=== PATIENT | male | born 1945 | race Caucasian/White ===

== ENCOUNTER → 2021-09-06 17:44 | Outpatient (CLI) | payer MEDICARE, OTHER, SELFPAY ==
--- NOTE | 2021-09-06 17:50 | DI.RAD.S_ITS ---
PROCEDURE: XR KNEE LT 3V INDICATIONS: LEFT KNEE PAIN TECHNIQUE: 3 views of the knee were acquired. COMPARISON: None. FINDINGS: Bones: No fractures or dislocations. No suspicious bony lesions. Moderate medial and patellofemoral compartment osteoarthritis. Mild lateral compartment osteoarthritis. Soft tissues: No joint effusion. No suspicious soft tissue calcifications. IMPRESSION: Left knee tricompartmental osteoarthritis. Dictated by: Viviana Gusman MD, PhD on 09/07/2021 at 10:26 Approved by: Viviana Gusman MD, PhD on 09/07/2021 at 10:26
== END ==
PROVIDERS: PCP Physician Assistant; Referring Provider Physician Assistant; Visit Provider Physician Assistant
DX: M17.12 Unilateral primary osteoarthritis, left knee (principal)
CPT/HCPCS: 73562

== ENCOUNTER → 2022-10-02 08:33 | Outpatient (CLI) | payer MEDICARE, OTHER, SELFPAY ==
[2022-10-02 10:04] LABS: Hematocrit 46.2 % (41-53); Hemoglobin 15.6 g/dL (13.5-17.5); Mean Corpuscular HGB Conc 33.9 % (30-36); Mean Corpuscular Hemoglobin 28.5 PG (26-34); Mean Corpuscular Volume 84.2 fL (80-100); Platelet Count 172 X10^3/uL (150-400); Red Blood Cell Count 5.48 X10^6/uL (4.5-5.9); Red Cell Distribution Width 14.4 % (11.6-14.8)
[2022-10-02 10:27] LABS: Alanine Aminotransferase 23 IU/L (<50); Albumin 4.1 g/dL (3.5-5.0); Albumin Globulin Ratio 1.5 (1.0-2.8); Alkaline Phosphatase 77 U/L (38-126); Aspartate Aminotransferase 28 IU/L (17-59); BUN Creatinine Ratio 22.1 (6-22); Bilirubin Total 0.9 mg/dL (0.2-1.3); Blood Urea Nitrogen 15 mg/dL (9-20); Calcium 9.2 mg/dL (8.4-10.2); Carbon Dioxide 28 mmol/L (22-32); Chloride 102 mmol/L (98-107); Cholesterol 128 mg/dL (140-199); Estimated Glomerular Filt Rate > 60 mL/min (>60); Globulin 2.8 g/dL (1.7-4.1); Glucose 122 mg/dL (80-110); HDL Cholesterol 37 mg/dL (40-60); HEMOLYSIS < 15 (0-50); LDL Cholesterol Calculated 74 mg/dL (<100); Potassium 4.6 mmol/L (3.4-5.1); Sodium 137 mmol/L (137-145); Total Protein 6.9 g/dL (6.3-8.2); Triglycerides 85 mg/dL (35-150)
== END ==
PROVIDERS: PCP Internal Medicine; Referring Provider Internal Medicine Cardiovascular Disease; Visit Provider Internal Medicine Cardiovascular Disease
DX: E78.2 Mixed hyperlipidemia (principal); I50.20 Unspecified systolic (congestive) heart failure
CPT/HCPCS: 36415; 80053; 80061; 85027

== ENCOUNTER → 2023-03-01 12:00 | Outpatient (CLI) | payer MEDICARE, OTHER, SELFPAY ==
--- NOTE | 2023-03-01 12:01 | DI.CT.S_ITS ---
PROCEDURE: CT LUNG LOW DOSE SCREENING INDICATIONS: former smoker TECHNIQUE: Noncontrast 2.0-2.5 mm thick sections acquired from the pulmonary apices to the posterior costophrenic angles. 7 mm thick axial MIP, and 5 mm coronal and sagittal reformats were then acquired. For radiation dose reduction, the following was used: automated exposure control, adjustment of mA and/or kV according to patient size. COMPARISON: None. FINDINGS: Image quality: Diagnostic. Lower Neck: No enlarged lymph nodes. Thyroid: No thyroid nodules which require sonographic follow up, per consensus guidelines. Axillae: No enlarged lymph nodes. Chest Wall: Unremarkable. Bones: Unremarkable. Lungs and Pleura: Scarring is present at the bilateral apices. Focal pleural thickening is present along the lateral right pleural surface which measures 2.8 x 1.5 x 1.5 cm. No suspicious pulmonary nodules or acute airspace opacities. Peripheral interlobular septal thickening is present within the upper and mid lungs bilaterally suggesting a component of fibrotic change. Heart: Heart size is normal. No pericardial effusion. Thoracic Vessels: The aorta and pulmonary arteries demonstrate normal size. Scattered atheromatous calcifications are present within the aortic arch. Mediastinum and Sydnee: No enlarged lymph nodes. Esophagus: No wall thickening. There is a small hiatal hernia. Upper Abdomen: There is likely a debris filled duodenal diverticulum which is incompletely characterized. A calcified gallstone is visualized within the fundus. Visualized upper abdomen solid organs and bowel loops appear otherwise normal. IMPRESSION: 1. Focal pleural thickening within the right hemithorax as above. Three-month follow-up is recommended to ensure stability or resolution of this finding as neoplasm cannot be excluded. 2. Findings suggestive of early pulmonary fibrosis. LUNG-RADS 4A; [address] follow-up recommended. Alternatively, PET-CT could be used to evaluate for increased metabolic activity. Clinically Significant Non-pulmonary Findings: Aortic atherosclerosis. Dictated by: Milagro King M.D. on 03/01/2023 at 14:05 Approved by: Milagro King M.D. on 03/01/2023 at 14:11
== END ==
PROVIDERS: PCP Internal Medicine; Referring Provider Internal Medicine; Visit Provider Internal Medicine
DX: Z87.891 Personal history of nicotine dependence (principal); Z12.2 Encounter for screening for malignant neoplasm of respiratory organs
CPT/HCPCS: 71250; 71271

== ENCOUNTER → 2023-06-06 16:33 | Outpatient (CLI) | payer MEDICARE, OTHER, SELFPAY ==
[2023-06-07 11:31] LABS: Prostate Specific Antigen 7.31 ng/mL (0.10-4.00)
== END ==
PROVIDERS: PCP Internal Medicine; Referring Provider Internal Medicine; Visit Provider Internal Medicine
DX: N40.1 Benign prostatic hyperplasia with lower urinary tract symptoms (principal); N13.8 Other obstructive and reflux uropathy
CPT/HCPCS: 36415; 84153

== ENCOUNTER → 2023-06-22 15:07 | Outpatient (CLI) | payer MEDICARE, OTHER, SELFPAY | PROVIDERS: PCP Internal Medicine; Referring Provider Internal Medicine; Visit Provider Internal Medicine | DX: R97.20 Elevated prostate specific antigen [PSA] (principal) | CPT/HCPCS: 36415; 84153; 84154 ==

== ENCOUNTER → 2023-07-16 14:49 | Outpatient (CLI) | payer MEDICARE, OTHER, SELFPAY ==
[2023-07-17 09:41] LABS: Fecal Immunochemical Test Negative (Negative)
== END ==
PROVIDERS: PCP Internal Medicine; Referring Provider Internal Medicine; Visit Provider Internal Medicine
DX: Z12.11 Encounter for screening for malignant neoplasm of colon (principal); N13.8 Other obstructive and reflux uropathy; N40.1 Benign prostatic hyperplasia with lower urinary tract symptoms
CPT/HCPCS: 82274

== ENCOUNTER → 2023-08-04 08:40 | Outpatient (CLI) | payer MEDICARE, OTHER, SELFPAY ==
--- NOTE | 2023-08-04 | DI.RAD.S_ITS ---
PROCEDURE: XR CHEST 2V INDICATIONS: head congestion, cough, eval for antibiotics TECHNIQUE: 2 views of the chest were acquired. COMPARISON: [facility], CT, CT CHEST WO [facility], 03/01/2023, 12:08. FINDINGS: Surgical changes and devices: An AICD is seen. Lungs and pleura: An incomplete inspiratory result is noted, causing a crowded appearance to the lung markings. The known right midlung opacity is again seen laterally. No pneumothorax or significant pleural effusions are seen. Mediastinum: The cardiac contours are within normal limits. The aorta demonstrates calcification and tortuosity. Bones and chest wall: Age-appropriate bony degenerative changes are seen. No suspicious bony abnormalities. Soft tissues appear unremarkable. IMPRESSION: There is a right midlung opacity seen laterally, which is better demonstrated by CT. Please consider follow-up CT. No additional superimposed infiltrates are seen. Postoperative and degenerative changes are seen. Dictated by: Joseph Larson M.D. on 08/04/2023 at 8:29 Approved by: Joseph Larson M.D. on 08/04/2023 at 8:32
[2023-08-04 18:03] LABS: COVID-19 CEPHEID 4-PLEX PCR Negative (Negative); Influenza A - CEPHEID Flu A NEGATIVE (NEGATIVE); Influenza B - CEPHEID Flu B NEGATIVE (NEGATIVE); Respiratory Syncytial Virus Negative (Negative)
== END ==
PROVIDERS: PCP Internal Medicine; Referring Provider Nurse Practitioner Family; Visit Provider Nurse Practitioner Family
DX: R05.1 Acute cough (principal)
CPT/HCPCS: 0241U; 71046

== ENCOUNTER 2023-09-13 02:12 | Emergency (ER) | payer MEDICARE, OTHER, SELFPAY ==
[2023-09-13] VITALS (7 sets, daily range): BP systolic 134–192; BP diastolic 74–87; PULSE 60–94; RESP 18; TEMP 36.2–36.6; O2SAT 92–98
--- NOTE | 2023-09-13 02:43 | ED.MALEGU ---
HPI - Male Genitourinary General Chief complaint: Urogenital-Male Stated complaint: Can't urinate Time Seen by Provider: 09/13/23 02:15 Source: patient and family Mode of arrival: Ambulatory History of Present Illness HPI Narrative: 77-year-old male with history of hypertension, insulin-dependent diabetes, systolic congestive heart failure, coronary disease presents by private vehicle from home for 1-2 days of inability to urinate. Patient states that he took an [id number] prostate supplement that he felt was helping him, but since yesterday he was not been able to urinate more than a tbsp of urine at a time. He was experiencing increasing suprapubic discomfort and fullness and decided to present for evaluation. Reports an elevated PSA, but has not seen a urologist in over 5 years and does not currently take a prostate medications Related Data Home Medications Medication Instructions Recorded Confirmed insulin glargine 100 unit/mL 20 unit SUBCUT DAILY 07/12/22 08/05/23 subcutaneous solution (Lantus U-100 Insulin) insulin lispro 100 unit/mL 14 unit SUBCUT TIDWMEAL 07/12/22 08/05/23 subcutaneous solution (Humalog U-100 Insulin) aspirin 81 mg tablet,delayed 81 mg PO .every other day PRN 03/27/23 08/05/23 release insulin syringe-needle U-100 0.3 #10 ea 03/27/23 08/05/23 mL 31 gauge x 5/16 Previous Rx's Medication Instructions Recorded carvedilol 12.5 mg tablet 12.5 mg PO BID #180 tabs 07/12/22 lisinopril 5 mg tablet 5 mg PO DAILY #90 tabs 07/12/22 rosuvastatin 20 mg tablet 20 mg PO DAILY #90 tabs 07/12/22 flash glucose sensor (FreeStyle #2 ea 12/05/22 Lelo 2 Sensor kit) codeine 10 mg-guaifenesin 100 mg/5 5 ml PO Q4H PRN cough #118 mL 08/08/23 mL oral liquid tamsulosin 0.4 mg capsule (Flomax) 0.4 mg PO DAILY #30 caps 09/13/23 Allergies Allergy/AdvReac Type Severity Reaction Status Date / Time No Known Drug Allergies Allergy Verified 08/05/23 08:55 Patient History Medical History Abnormal chest CT Elevated PSA Chicken pox (~1949) Herpes (~1984) Skin cancer (~2018) Sensorineural hearing loss, bilateral (~2016) Primary osteoarthritis of left knee Mixed hyperlipidemia Essential hypertension Insulin use (long-term) in type 2 diabetes Type 2 diabetes mellitus with cardiac complication (~2009) Systolic CHF, chronic Coronary artery disease Surgical History Anesthesia History of heart artery stent Presence of combination internal cardiac defibrillator (ICD) and pacemaker (~2009) Family History Father Parkinson's disease Mother Diabetes mellitus History of heart disease Brother Stroke Grandfather Stroke Grandmother Cancer Social History details: , retired canoe trip, 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 Smoking Status: Former smoker Smoking Status: Former smoker alcohol intake frequency: holidays/special occasions only Substance Use Type: does not use Exam Initial Vital Signs Initial Vital Signs: Vital Signs Pulse Rate 85 09/13/23 02:22 Blood Pressure 192/85 H 09/13/23 02:22 Pulse Oximetry 94 09/13/23 02:22 Const: Awake, alert, no acute distress, nontoxic appearing Cardiac: regular rate, regular rhythm RESP: unlabored, clear bilaterally, no wheezing GI: Soft, nontender, suprapubic fullness Skin: Warm, Dry, intact, no rashes Neuro: AO x3, CN II-XII grossly intact, moves all extremities Course Orders Ordered: ED Orders 09/13/23 02:54 CBC Auto Diff [Complete Blood Count AUTO DIFF] Stat CMP [Comprehensive Metabolic Panel] Stat Vital Signs Vital signs: Vital Signs - 8 hr 09/13/23 02:22 09/13/23 02:22 09/13/23 02:26 Temperature 98 F Pulse Rate 85 67 Respiratory Rate 18 Blood Pressure 192/85 H 192/85 H Pulse Oximetry 94 96 Oxygen Delivery Method Room Air 09/13/23 02:30 09/13/23 02:50 09/13/23 02:50 Temperature Pulse Rate 94 H 62 Respiratory Rate 18 Blood Pressure 161/74 H Pulse Oximetry 94 93 Oxygen Delivery Method 09/13/23 03:00 09/13/23 03:30 Temperature Pulse Rate 60 60 Respiratory Rate Blood Pressure Pulse Oximetry 92 92 Oxygen Delivery Method MDM - Male Genitourinary Lab Data 09/13/23 02:54 09/13/23 02:54 Labs: Lab Results 09/13/23 Range/Units 02:54 WBC 8.3 (4.5-11.0) X10^3/uL RBC 5.01 (4.5-5.9) X10^6/uL Hgb 14.3 (13.5-17.5) g/dL Hct 42.1 (41-53) % MCV 84.1 (80-100) fL MCH 28.6 (26-34) PG MCHC 34.0 (30-36) % RDW 14.8 (11.6-14.8) % Plt Count 170 (150-400) X10^3/uL Neut % (Auto) 67.9 (50-75) % Lymph % (Auto) 15.7 L (25-40) % [place] % (Auto) 10.9 (3-14) % Eos % (Auto) 4.5 H (2-4) % Baso % (Auto) 1.0 (0-2) % Neut # (Auto) 5600 (7657-9990) /uL Lymph # (Auto) 1300 (1356-0360) /uL [place] # (Auto) 900 (0-900) /uL Eos # (Auto) 400 (0-450) /uL Baso # (Auto) 100 (0-100) /uL Sodium 139 (137-145) mmol/L Potassium 3.7 (3.4-5.1) mmol/L Chloride 108 H (98-107) mmol/L Carbon Dioxide 24 (22-32) mmol/L BUN 11 (9-20) mg/dL Creatinine 0.63 L (0.66-1.25) mg/dL Estimated GFR > 60 (>60) mL/min BUN/Creatinine Ratio 17.5 (6-22) Glucose 150 H (80-110) mg/dL Calcium 8.4 (8.4-10.2) mg/dL Total Bilirubin 0.7 (0.2-1.3) mg/dL AST 31 (17-59) IU/L ALT 22 (<50) IU/L Alkaline Phosphatase 76 (38-126) U/L Total Protein 6.8 (6.3-8.2) g/dL Albumin 3.9 (3.5-5.0) g/dL Globulin 2.9 (1.7-4.1) g/dL Albumin/Globulin Ratio 1.3 (1.0-2.8) MDM Narrative Medical decision making narrative: Urinary retention for nearly 24 hours. Garcia placed with drainage of approximately 1200 cc of clear yellow urine. Patient reported resolution of suprapubic pain after placement of Garcia catheter. Laboratory work unremarkable. Normal kidney function, normal electrolytes. Patient to be started on Flomax. Advised urology follow up. Discharge Plan Departure Patient Disposition: Home Clinical Impression: Acute urinary retention Instructions: DI for Urinary Retention in Men Activity Restrictions/Additional Instructions: Your laboratory work today looks normal. Take Flomax daily. Follow up with Urology, a number has been provided below to call for follow up. You had 1200mL in your bladder by the time that the catheter was placed Prescriptions: New tamsulosin [Flomax] 0.4 mg capsule 0.4 mg PO DAILY Qty: 30 0RF No Action (DME) FreeStyle Lelo 2 Sensor Kit See Rx Instructions .Route Qty: 2 3RF Rx Instructions: As directed codeine-guaifenesin 10-100 mg/5 mL liquid 5 ml PO Q4H PRN (Reason: cough) Qty: 118 1RF insulin lispro [Humalog U-100 Insulin] 100 unit/mL solution 14 unit SUBCUT TIDWMEAL Patient Comments: INJECT 14 UNITS SUBCUTANEOUSLY THREE TIMES DAILY WITH MEALS insulin glargine [Lantus U-100 Insulin] 100 unit/mL solution 20 unit SUBCUT DAILY lisinopril 5 mg tablet 5 mg PO DAILY Qty: 90 3RF rosuvastatin 20 mg tablet 20 mg PO DAILY Qty: 90 3RF carvedilol 12.5 mg tablet 12.5 mg PO BID Qty: 180 3RF Rx Instructions: must administer with a meal/food (DME) insulin syringe-needle U-100 0.3 mL 31 gauge x 5/16 syringe See Rx Instructions .ROUTE .MEDSUPPLY Qty: 10 Patient Comments: [NO ORIGINAL SIG] Rx Instructions: As directed aspirin 81 mg tablet,delayed release (DR/EC) 81 mg PO .every other day PRN Referrals: Christopher Black MD [Physician] - Randy Luevano MD [Primary Care Provider] - Stand Alone Forms: Patient Portal/API
[2023-09-13 03:05] LABS: Add Manual Diff / Slide Review NO; Basophils Absolute Auto 100 /uL (0-100); Eosinophils Absolute Auto 400 /uL (0-450); Eosinophils Percent Auto 4.5 % (2-4); Hematocrit 42.1 % (41-53); Hemoglobin 14.3 g/dL (13.5-17.5); Lymphocytes Absolute Auto 1300 /uL (1100-4500); Lymphocytes Percent Auto 15.7 % (25-40); Mean Corpuscular Hemoglobin 28.6 PG (26-34); Mean Corpuscular Volume 84.1 fL (80-100); Monocytes Absolute Auto 900 /uL (0-900); Monocytes Percent Auto 10.9 % (3-14); Neutrophils Absolute Auto 5600 /uL (1500-7000); Neutrophils Percent Auto 67.9 % (50-75); Platelet Count 170 X10^3/uL (150-400); Red Blood Cell Count 5.01 X10^6/uL (4.5-5.9); Red Cell Distribution Width 14.8 % (11.6-14.8); White Blood Cell Count 8.3 X10^3/uL (4.5-11.0)
[2023-09-13 03:28] LABS: Alanine Aminotransferase 22 IU/L (<50); Albumin 3.9 g/dL (3.5-5.0); Albumin Globulin Ratio 1.3 (1.0-2.8); Alkaline Phosphatase 76 U/L (38-126); Aspartate Aminotransferase 31 IU/L (17-59); BUN Creatinine Ratio 17.5 (6-22); Bilirubin Total 0.7 mg/dL (0.2-1.3); Blood Urea Nitrogen 11 mg/dL (9-20); Calcium 8.4 mg/dL (8.4-10.2); Carbon Dioxide 24 mmol/L (22-32); Chloride 108 mmol/L (98-107); Estimated Glomerular Filt Rate > 60 mL/min (>60); Globulin 2.9 g/dL (1.7-4.1); Glucose 150 mg/dL (80-110); HEMOLYSIS < 15 (0-50); Potassium 3.7 mmol/L (3.4-5.1); Sodium 139 mmol/L (137-145); Total Protein 6.8 g/dL (6.3-8.2)
== END 2023-09-13 04:12 | disposition home or self-care (01) ==
PROVIDERS: Emergency Provider Emergency Medicine; PCP Internal Medicine
DX: R33.8 Other retention of urine (principal); Z79.899 Other long term (current) drug therapy
CPT/HCPCS: 80053; 85025; 99283

== ENCOUNTER 2023-09-14 13:52 | Emergency (ER) | payer MEDICARE, OTHER, SELFPAY ==
[2023-09-14 13:53] VITALS: BP 172/74; PULSE 65; RESP 14; TEMP 36.6; O2SAT 97; BMI 26.6
--- NOTE | 2023-09-14 14:18 | ED_ITS ---
HPI - General Adult General Chief complaint: Urogenital-Male Stated complaint: returning patient, catheter painful and bloody Time Seen by Provider: 09/14/23 13:58 Source: patient Mode of arrival: Ambulatory History of Present Illness HPI narrative: Patient is a 77-year-old male. Was seen here in the emergency department last evening for acute urinary retention. Had a Garcia catheter in place. Is discharged home. Since that time he has had increase in pain specifically at the tip of the penis and blood from the tip of the penis as well. They also report that they were given very little instructions on how to take care of the Garcia catheter and were somewhat concerned that they were doing the correctly. No fevers. Related Data Home Medications Medication Instructions Recorded Confirmed insulin glargine 100 unit/mL 20 unit SUBCUT DAILY 07/12/22 08/05/23 subcutaneous solution (Lantus U-100 Insulin) insulin lispro 100 unit/mL 14 unit SUBCUT TIDWMEAL 07/12/22 08/05/23 subcutaneous solution (Humalog U-100 Insulin) aspirin 81 mg tablet,delayed 81 mg PO .every other day PRN 03/27/23 08/05/23 release insulin syringe-needle U-100 0.3 #10 ea 03/27/23 08/05/23 mL 31 gauge x 5/16 Previous Rx's Medication Instructions Recorded carvedilol 12.5 mg tablet 12.5 mg PO BID #180 tabs 07/12/22 lisinopril 5 mg tablet 5 mg PO DAILY #90 tabs 07/12/22 rosuvastatin 20 mg tablet 20 mg PO DAILY #90 tabs 07/12/22 flash glucose sensor (FreeStyle #2 ea 12/05/22 Lelo 2 Sensor kit) codeine 10 mg-guaifenesin 100 mg/5 5 ml PO Q4H PRN cough #118 mL 08/08/23 mL oral liquid ciprofloxacin HCl 250 mg tablet 250 mg PO BID #6 tabs 09/13/23 (Cipro) tamsulosin 0.4 mg capsule (Flomax) 0.4 mg PO DAILY #30 caps 09/13/23 lidocaine 4 % topical gel 1 applic topical TID PRN pain #30 09/14/23 grams Allergies Allergy/AdvReac Type Severity Reaction Status Date / Time No Known Drug Allergies Allergy Verified 09/14/23 14:01 Review of Systems Constitutional Constitutional: Reports system reviewed and no additional complaints, except as documented Gastrointestinal Gastrointestinal: Reports system reviewed and no additional complaints, except as documented Genitourinary Genitourinary: Reports system reviewed and no additional complaints, except as documented Patient History Medical History Abnormal chest CT Elevated PSA Chicken pox (~1949) Herpes (~1984) Skin cancer (~2017) Sensorineural hearing loss, bilateral (~2016) Primary osteoarthritis of left knee Mixed hyperlipidemia Essential hypertension Insulin use (long-term) in type 2 diabetes Type 2 diabetes mellitus with cardiac complication (~2009) Systolic CHF, chronic Coronary artery disease Surgical History Anesthesia History of heart artery stent Presence of combination internal cardiac defibrillator (ICD) and pacemaker (~2009) Family History Father Parkinson's disease Mother Diabetes mellitus History of heart disease Brother Stroke Grandfather Stroke Grandmother Cancer Social History details: , retired canoe trip, 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 Does have a small amount of blood around the tip of the meatus. He was circumcised. Garcia catheter is in place in his draining. Course Vital Signs Vital signs: Vital Signs - 8 hr 09/14/23 13:53 Temperature 97.8 F Pulse Rate 65 Respiratory Rate 14 Blood Pressure 172/74 H Pulse Oximetry 97 Oxygen Delivery Method Room Air Medical Decision Making MDM Narrative Medical decision making narrative: He does have some blood around the tip of the pain has been not actively bleeding. The Garcia catheter is draining. Nursing staff states that the catheter did seem to be twisted in a very awkward way which potentially was providing some stress on the catheter causing a lot of the discomfort. Had an extensive discussion with him and his about how to take care of the Garcia catheter. It was not replaced here in the ER. Will provide some lidocaine jelly for discomfort as needed. They were given return precautions. He expressed understanding and agreement. Discharge Plan Departure Patient Disposition: Home Clinical Impression: Complication of Garcia catheter Instructions: How to Care for Your Garcia Catheter -- Male Activity Restrictions/Additional Instructions: You can use the lidocaine gel as needed. Keep your scheduled appointment with Urology coming up in a couple weeks. Return to the emergency department for new or worsening symptoms. Prescriptions: New lidocaine 4 % gel 1 applic topical TID PRN (Reason: pain) Qty: 30 0RF No Action (DME) FreeStyle Lelo 2 Sensor Kit See Rx Instructions .Route Qty: 2 3RF Rx Instructions: As directed ciprofloxacin HCl [Cipro] 250 mg tablet 250 mg PO BID Qty: 6 0RF Rx Instructions: Take one tablet po BID one day prior to appointment, the day of the appointment and the day after. codeine-guaifenesin 10-100 mg/5 mL liquid 5 ml PO Q4H PRN (Reason: cough) Qty: 118 1RF insulin lispro [Humalog U-100 Insulin] 100 unit/mL solution 14 unit SUBCUT TIDWMEAL Patient Comments: INJECT 14 UNITS SUBCUTANEOUSLY THREE TIMES DAILY WITH MEALS insulin glargine [Lantus U-100 Insulin] 100 unit/mL solution 20 unit SUBCUT DAILY lisinopril 5 mg tablet 5 mg PO DAILY Qty: 90 3RF rosuvastatin 20 mg tablet 20 mg PO DAILY Qty: 90 3RF carvedilol 12.5 mg tablet 12.5 mg PO BID Qty: 180 3RF Rx Instructions: must administer with a meal/food (DME) insulin syringe-needle U-100 0.3 mL 31 gauge x 5/16 syringe See Rx Instructions .ROUTE .MEDSUPPLY Qty: 10 Patient Comments: [NO ORIGINAL SIG] Rx Instructions: As directed aspirin 81 mg tablet,delayed release (DR/EC) 81 mg PO .every other day PRN tamsulosin [Flomax] 0.4 mg capsule 0.4 mg PO DAILY Qty: 30 0RF Referrals: Randy Luevano MD [Primary Care Provider] - Stand Alone Forms: Patient Portal/API
[2023-09-14 14:32] VITALS: BP 141/67; PULSE 58; RESP 16; O2SAT 95
== END 2023-09-14 14:33 | disposition home or self-care (01) ==
PROVIDERS: Emergency Provider Emergency Medicine; PCP Internal Medicine
DX: T83.9XXA Unspecified complication of genitourinary prosthetic device, implant and graft, initial encounter (principal); Z79.899 Other long term (current) drug therapy
CPT/HCPCS: 99281

== ENCOUNTER 2023-09-22 14:35 | Emergency (ER) | payer MEDICARE, OTHER, SELFPAY ==
[2023-09-22 14:43] VITALS: BP 178/79; PULSE 61; RESP 16; TEMP 36.3; O2SAT 100; BMI 25.8
--- NOTE | 2023-09-22 15:38 | PC.NURSE ---
Pt reports continued pain since initial catheter placement on 09/12. Pt states he has attempted to reach out to PCP/WIC/Urologist for help w/ no luck. Pt states he has not been able to manage pain at home w/ tyelonal. Pt states he has been unable to sleep due to pain. Pt states he has been having normal drainage from cather; clean yellow urine noted.
--- NOTE | 2023-09-22 16:12 | ED.MALEGU ---
HPI - Male Genitourinary General Chief complaint: Urogenital-Male Stated complaint: has cathater pain, unable to sleep Time Seen by Provider: 09/22/23 15:49 Source: patient, family, RN notes reviewed and old records reviewed Mode of arrival: Ambulatory Limitations: no limitations History of Present Illness HPI Narrative: 77-year-old male history of diabetes hypertension, dyslipidemia patient presented 09/03/2023 with acute urinary retention had a catheter placed returned several days later with discomfort and was given lidocaine topically still has quite a bit of discomfort at the urethral opening and a little bit down inside. He states no fevers no abdominal pain no flank pain. He states he has been draining normally. States that it was very painful to have the catheter placed initially. But then had significant improvement of his retention but has had some persistent discomfort at the urethral opening. No drainage around the catheter. He has a little bit of blood initially right after the catheter was placed but none persistently. Patient has follow up on the 30 of September with Urology. Patient has not had any nausea or vomiting, no fevers or chills no issues with bowel movements. Related Data Home Medications Medication Instructions Recorded Confirmed insulin glargine 100 unit/mL 20 unit SUBCUT DAILY 07/12/22 08/05/23 subcutaneous solution (Lantus U-100 Insulin) insulin lispro 100 unit/mL 14 unit SUBCUT TIDWMEAL 07/12/22 08/05/23 subcutaneous solution (Humalog U-100 Insulin) aspirin 81 mg tablet,delayed 81 mg PO .every other day PRN 03/27/23 08/05/23 release insulin syringe-needle U-100 0.3 #10 ea 03/27/23 08/05/23 mL 31 gauge x 5/16 Previous Rx's Medication Instructions Recorded carvedilol 12.5 mg tablet 12.5 mg PO BID #180 tabs 07/12/22 lisinopril 5 mg tablet 5 mg PO DAILY #90 tabs 07/12/22 rosuvastatin 20 mg tablet 20 mg PO DAILY #90 tabs 07/12/22 flash glucose sensor (FreeStyle #2 ea 12/05/22 Lelo 2 Sensor kit) codeine 10 mg-guaifenesin 100 mg/5 5 ml PO Q4H PRN cough #118 mL 08/08/23 mL oral liquid ciprofloxacin HCl 250 mg tablet 250 mg PO BID #6 tabs 09/13/23 (Cipro) tamsulosin 0.4 mg capsule (Flomax) 0.4 mg PO DAILY #30 caps 09/13/23 lidocaine 4 % topical gel 1 applic topical TID PRN pain #30 09/14/23 grams ciprofloxacin HCl 500 mg tablet 500 mg PO Q12H #14 tabs 09/22/23 hydrocodone 5 mg-acetaminophen 325 1 tab PO Q6H PRN pain #10 tabs 09/22/23 mg tablet terbinafine HCl 1 % topical cream 1 applic topical BID #15 grams 09/22/23 Allergies Allergy/AdvReac Type Severity Reaction Status Date / Time No Known Drug Allergies Allergy Verified 09/22/23 14:42 Review of Systems Review of Systems ROS Unobtainable: All systems reviewed & are unremarkable except as noted in HPI and below Patient History Medical History Abnormal chest CT Elevated PSA Chicken pox (~1949) Herpes (~1984) Skin cancer (~2017) Sensorineural hearing loss, bilateral (~2015) Primary osteoarthritis of left knee Mixed hyperlipidemia Essential hypertension Insulin use (long-term) in type 2 diabetes Type 2 diabetes mellitus with cardiac complication (~2009) Systolic CHF, chronic Coronary artery disease Surgical History Anesthesia History of heart artery stent Presence of combination internal cardiac defibrillator (ICD) and pacemaker (~2009) Family History Father Parkinson's disease Mother Diabetes mellitus History of heart disease Brother Stroke Grandfather Stroke Grandmother Cancer Social History details: , retired canoe trip, 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 RESPIRATORY: Breath sounds equal bilaterally, no wheezes rales or rhonchi. ABDOMEN: Soft, nontender. Normoactive bowel sounds all 4 quadrants. No guarding or rebound, rigidity, no mass : No CVA tenderness. Male: normal external examination except for some erythema and swelling of the foreskin, patient is circumcised, underneath the edge there is a little bit of breakdown and white discoloration and scalp edges, patient's catheter appears to be in place draining there is no significant breakdown of the urethral opening or penile discharge or lesions, testicles non-tender, cremasteric reflex intact, no inguinal hernias noted. EXTREMITIES: Normal range of motion, no clubbing or edema. Neurovascularly intact NEUROLOGICAL: Cranial nerves II through XII grossly intact. Moving all extremities SKIN: Warm, dry, no petechiae, no rashes or lesions otherwise noted. Initial Vital Signs Initial Vital Signs: Vital Signs Temperature 97.3 F L 09/22/23 14:43 Pulse Rate 61 09/22/23 14:43 Respiratory Rate 16 09/22/23 14:43 Blood Pressure 178/79 H 09/22/23 14:43 Pulse Oximetry 100 09/22/23 14:43 Oxygen Delivery Method Room Air 09/22/23 14:43 Course Orders Ordered: ED Orders 09/22/23 16:24 UA Complete [Urinalysis and Microscopic] Stat Urine Culture Stat Discontinued Medications Hydrocodone Bitart/Acetaminophen (Hydrocodone/Acet 5/325 Tablet) 2 tab PO NOW ONE Stop: 09/22/23 16:11 Last Admin: 09/22/23 16:31 Dose: 2 tab Documented By: KW Vital Signs Vital signs: Vital Signs - 8 hr 09/22/23 14:43 09/22/23 16:47 Temperature 97.3 F L Pulse Rate 61 66 Respiratory Rate 16 16 Blood Pressure 178/79 H 163/79 H Pulse Oximetry 100 96 Oxygen Delivery Method Room Air MDM - Male Genitourinary Lab Data Labs: Lab Results 09/22/23 Range/Units 16:24 Urine Color Yellow Urine Appearance Clear Urine pH 6.5 (4.5-8.0) Ur Specific [place] 1.010 (1.000-1.035) Urine Protein Trace H (Negative) Urine Glucose (UA) Negative (Negative) g/dL Urine Ketones Negative (NEGATIVE) Urine Occult Blood 3+ H (Negative) Urine Nitrate Positive H (Negative) Urine Bilirubin Negative (NEGATIVE) Urine Urobilinogen 0.2 (0.2) E.U./dL Ur Leukocyte Esterase 2+ H (NEGATIVE) Urine RBC 1-5/hpf (0-5/HPF) Urine WBC 1-5/hpf (0-5/HPF) Ur Squamous Epith Cells None seen (0-5/HPF) Urine Bacteria Moderate (10-30) H (None) Ur Culture Indicated? Specimen cultured Vol Urine Centrifuged 10ml (spun) MDM Narrative Medical decision making narrative: Patient's catheter appears to be draining appropriately does have pain at the opening of the urethra and a little bit to the inside, patient's distal penis does appear to have little bit of infection appears to be most likely fungal with a little bit of white discoloration along the edge of a fold. Plan for topical antifungal, short course of oral pain medication. Discussed patient does need to take something to help with bowel movements as this will cause constipation and make his urinary retention more persistent. Patient did not have a UA or urine sample that I can note from his 2 prior visits so was sent today. Patient's UA was nitrate positive, sent in prescription for oral antibiotic. Updated patient verbally NSAIDs Cipro 500 mg p.o. b.i.d. Discharge Plan Departure Patient Disposition: Home Clinical Impression: Pain in urethra, Infection of penis Activity Restrictions/Additional Instructions: You do appear to have little bit of infection I suspect it is likely fungal or yeast. Please use topical medication over the affected area until you see Urology on September 30. Your urine sample is pending, if culture shows infection you would be contacted to start an antibiotic. Typically takes 48 hours for urine cultures to result. You can take 1-2 tablets of [place] every 6 hours as needed for pain. This medication can make you sleepy do not drive, perform hazardous activities or make any major decisions while taking it. This medication will make you constipated please take a stool softener once to twice daily until stools are soft and regular. Constipation we will make you more likely to be in urinary retention so please make sure to take a dose of [place] once or twice daily while taking narcotic pain medications. [facility] [place]. Please return for fevers, rapidly worsening redness swelling or increasing signs of infection at the end of the penis, if you are catheter is not draining, if you are having new abdominal back or flank pain, vomiting, fevers or other new or concerning changes. Prescriptions: New terbinafine HCl 1 % cream 1 applic topical BID Qty: 15 0RF hydrocodone-acetaminophen 5-325 mg tablet 1 tab PO Q6H PRN (Reason: pain) Qty: 10 0RF ciprofloxacin HCl 500 mg tablet 500 mg PO Q12H Qty: 14 0RF No Action (DME) FreeStyle Lelo 2 Sensor Kit See Rx Instructions .Route Qty: 2 3RF Rx Instructions: As directed ciprofloxacin HCl [Cipro] 250 mg tablet 250 mg PO BID Qty: 6 0RF Rx Instructions: Take one tablet po BID one day prior to appointment, the day of the appointment and the day after. codeine-guaifenesin 10-100 mg/5 mL liquid 5 ml PO Q4H PRN (Reason: cough) Qty: 118 1RF insulin lispro [Humalog U-100 Insulin] 100 unit/mL solution 14 unit SUBCUT TIDWMEAL Patient Comments: INJECT 14 UNITS SUBCUTANEOUSLY THREE TIMES DAILY WITH MEALS insulin glargine [Lantus U-100 Insulin] 100 unit/mL solution 20 unit SUBCUT DAILY lisinopril 5 mg tablet 5 mg PO DAILY Qty: 90 3RF rosuvastatin 20 mg tablet 20 mg PO DAILY Qty: 90 3RF carvedilol 12.5 mg tablet 12.5 mg PO BID Qty: 180 3RF Rx Instructions: must administer with a meal/food (DME) insulin syringe-needle U-100 0.3 mL 31 gauge x 5/16 syringe See Rx Instructions .ROUTE .MEDSUPPLY Qty: 10 Patient Comments: [NO ORIGINAL SIG] Rx Instructions: As directed aspirin 81 mg tablet,delayed release (DR/EC) 81 mg PO .every other day PRN tamsulosin [Flomax] 0.4 mg capsule 0.4 mg PO DAILY Qty: 30 0RF lidocaine 4 % gel 1 applic topical TID PRN (Reason: pain) Qty: 30 0RF Referrals: Randy Luevano MD [Primary Care Provider] - Stand Alone Forms: Patient Portal/API
--- NOTE | 2023-09-22 16:27 | PC.NURSE ---
Pt urinary bag changed as well as securement device; education given to help prevent infection.
[2023-09-22 16:30] LABS: Appearance Urine UA CLEAR; Bilirubin Urine UA NEGATIVE (NEGATIVE); Color Urine UA YELLOW; Glucose Urine UA NEGATIVE (Negative); Ketones Urine UA NEGATIVE (NEGATIVE); Leukocyte Esterase Urine UA 2+ (NEGATIVE); Nitrite Urine UA POSITIVE (Negative); Occult Blood Urine UA 3+ (Negative); Protein Urine UA TRACE (Negative); Urobilinogen Urine UA 0.2 E.U./dL (0.2); pH Urine UA 6.5 (4.5-8.0)
[2023-09-22] MEDS: HYDROCODONE/ACET 5/325 TABLET 2 TAB PO (16:31)
[2023-09-22 16:42] LABS: Urine Volume 10mL (spun)
[2023-09-22 16:43] LABS: Bacteria Urine Moderate (10-30); Culture Indicated Urine Specimen Cultured; RBC Urine 1-5/HPF (0-5/HPF); Squamous Epithelial Cell Urine None Seen (0-5/HPF); WBC Urine 1-5/HPF (0-5/HPF)
[2023-09-22 16:47] VITALS: BP 163/79; PULSE 66; RESP 16; O2SAT 96
== END 2023-09-22 16:48 | disposition home or self-care (01) ==
PROVIDERS: Emergency Provider Emergency Medicine; PCP Internal Medicine
DX: N48.29 Other inflammatory disorders of penis (principal)
CPT/HCPCS: 81001; 87077; 87086; 87186; 99283

== ENCOUNTER → 2023-11-29 16:08 | Outpatient (CLI) | payer MEDICARE, OTHER, SELFPAY ==
[2023-11-29 20:05] LABS: Prostate Specific Antigen 9.52 ng/mL (0.10-4.00)
== END ==
LOC: LAB 16:11
PROVIDERS: PCP Internal Medicine; Referring Provider Urology; Visit Provider Urology
DX: N40.1 Benign prostatic hyperplasia with lower urinary tract symptoms (principal); N13.8 Other obstructive and reflux uropathy
CPT/HCPCS: 36415; 84153

== ENCOUNTER → 2024-01-28 10:56 | Outpatient (CLI) | payer MEDICARE, OTHER, SELFPAY ==
[2024-01-28 12:22] LABS: Prostate Specific Antigen 8.71 ng/mL (0.10-4.00)
== END ==
PROVIDERS: Urology; PCP Internal Medicine; Referring Provider Internal Medicine; Visit Provider Internal Medicine
DX: R97.20 Elevated prostate specific antigen [PSA] (principal)
CPT/HCPCS: 36415; 84153

== ENCOUNTER → 2024-02-26 13:39 | Outpatient (CLI) | payer MEDICARE, OTHER, SELFPAY ==
--- NOTE | 2024-02-26 13:51 | DI.CT.S_ITS ---
PROCEDURE: CT CHEST WO CON INDICATIONS: abnormal CT followup TECHNIQUE: Noncontrast 5 mm thick sections acquired from the pulmonary apices to the posterior costophrenic angles. 1 mm lung window, 5 mm thick coronal and sagittal and 7 mm axial MIP reformats were then acquired. For radiation dose reduction, the following was used: automated exposure control, adjustment of mA and/or kV according to patient size. COMPARISON: [facility], CT, CT CHEST WO CON, 03/01/2023, 12:08. FINDINGS: Image quality: Diagnostic Lungs and pleura: Scattered scarring and areas of pleural thickening again seen, similar to 03/01/2023. Fatty density pleural thickening is stable along the periphery of the right major fissure, without soft tissue component. No suspicious solid soft tissue pulmonary nodules. No pleural effusions. Background emphysematous changes. Mediastinum, heart, and esophagus: Small hiatal hernia. Left chest wall pulse generator with electrode leads. Coronary calcifications. Unremarkable esophagus. Chest wall and thyroid: Unremarkable Upper abdomen: No gross abnormality on these noncontrast images Bones: There are degenerative changes. IMPRESSION: No overtly suspicious pulmonary nodules. There is stable pleural thickening along the lateral aspect of the right major fissure with overall fatty density, favored to be benign fatty hypertrophy. Background emphysematous changes. Consider yearly chest CT follow-up given patient's presumed risk factors for malignancy if clinically indicated. Dictated by: Hitesh Milton M.D. on 02/28/2024 at 12:12 Approved by: Hitesh Milton M.D. on 02/28/2024 at 12:16
== END ==
PROVIDERS: PCP Internal Medicine; Referring Provider Internal Medicine; Visit Provider Internal Medicine
DX: K44.9 Diaphragmatic hernia without obstruction or gangrene (principal); R93.89 Abnormal findings on diagnostic imaging of other specified body structures; I25.10 Atherosclerotic heart disease of native coronary artery without angina pectoris
CPT/HCPCS: 71250

== ENCOUNTER → 2024-04-28 10:16 | Outpatient (CLI) | payer MEDICARE, OTHER, SELFPAY ==
[2024-04-28 11:10] LABS: Add Manual Diff / Slide Review NO; Basophils Absolute Auto 100 /uL (0-100); Basophils Percent Auto 0.9 % (0-2); Eosinophils Absolute Auto 300 /uL (0-450); Eosinophils Percent Auto 4.1 % (2-4); Hematocrit 46.1 % (41-53); Hemoglobin 15.3 g/dL (13.5-17.5); Lymphocytes Absolute Auto 1600 /uL (1100-4500); Lymphocytes Percent Auto 21.8 % (25-40); Mean Corpuscular HGB Conc 33.3 % (30-36); Mean Corpuscular Hemoglobin 28.1 PG (26-34); Mean Corpuscular Volume 84.3 fL (80-100); Monocytes Absolute Auto 600 /uL (0-900); Monocytes Percent Auto 8.3 % (3-14); Neutrophils Absolute Auto 4700 /uL (1500-7000); Neutrophils Percent Auto 64.9 % (50-75); Platelet Count 180 X10^3/uL (150-400); Red Blood Cell Count 5.46 X10^6/uL (4.5-5.9); White Blood Cell Count 7.2 X10^3/uL (4.5-11.0)
[2024-04-28 11:45] LABS: BUN Creatinine Ratio 21.3 (6-22); Blood Urea Nitrogen 17 mg/dL (9-20); Calcium 9.1 mg/dL (8.4-10.2); Carbon Dioxide 27 mmol/L (22-32); Chloride 101 mmol/L (98-107); Estimated Glomerular Filt Rate > 60 mL/min (>60); Glucose 152 mg/dL (80-110); HEMOLYSIS < 15 (0-50); Potassium 4.7 mmol/L (3.4-5.1); Sodium 137 mmol/L (137-145)
== END ==
PROVIDERS: PCP Internal Medicine; Referring Provider Internal Medicine Cardiovascular Disease; Visit Provider Internal Medicine Cardiovascular Disease
DX: I50.20 Unspecified systolic (congestive) heart failure (principal)
CPT/HCPCS: 36415; 80048; 85025

== ENCOUNTER → 2024-08-08 14:02 | Outpatient (CLI) | payer MEDICARE, OTHER, SELFPAY ==
[2024-08-08 15:41] LABS: BUN Creatinine Ratio 21.9 (6-22); Blood Urea Nitrogen 16 mg/dL (9-20); Calcium 8.8 mg/dL (8.4-10.2); Carbon Dioxide 28 mmol/L (22-32); Chloride 102 mmol/L (98-107); Estimated Glomerular Filt Rate > 60 mL/min (>60); Glucose 240 mg/dL (70-99); HEMOLYSIS < 15 (0-50); Potassium 4.4 mmol/L (3.4-5.1); Sodium 138 mmol/L (137-145)
== END ==
PROVIDERS: PCP Internal Medicine; Referring Provider Internal Medicine Cardiovascular Disease; Visit Provider Internal Medicine Cardiovascular Disease
DX: I25.5 Ischemic cardiomyopathy (principal)
CPT/HCPCS: 36415; 80048

== ENCOUNTER → 2024-08-28 09:49 | Outpatient (CLI) | payer MEDICARE, OTHER, SELFPAY ==
[2024-08-28 10:59] LABS: Hemoglobin A1C% w Est Avg Glu 6.9 % (4.0-6.0)
[2024-08-28 11:19] LABS: Blood Urea Nitrogen 17 mg/dL (9-20); Calcium 8.9 mg/dL (8.4-10.2); Carbon Dioxide 26 mmol/L (22-32); Chloride 105 mmol/L (98-107); Cholesterol 112 mg/dL (140-199); Estimated Glomerular Filt Rate > 60 mL/min (>60); Glucose 138 mg/dL (70-99); HDL Cholesterol 37 mg/dL (40-60); HEMOLYSIS < 15 (0-50); Potassium 4.4 mmol/L (3.4-5.1); Sodium 138 mmol/L (137-145); Triglycerides 83 mg/dL (35-150)
[2024-08-28 11:47] LABS: Prostate Specific Antigen 8.37 ng/mL (0.10-4.00)
[2024-08-28 12:30] LABS: Microalbumi Creatinin Ratio Ur 609.0 ug/mg CR (<30)
== END ==
PROVIDERS: Urology; PCP Internal Medicine; Referring Provider Student in an Organized Health Care Education/Training Program; Visit Provider Student in an Organized Health Care Education/Training Program
DX: E11.59 Type 2 diabetes mellitus with other circulatory complications (principal); R97.20 Elevated prostate specific antigen [PSA]; E78.2 Mixed hyperlipidemia; I50.22 Chronic systolic (congestive) heart failure
CPT/HCPCS: 36415; 80048; 80061; 82043; 82570; 83036; 84153; 84450

== ENCOUNTER → 2025-01-08 11:42 | Outpatient (CLI) | payer MEDICARE, OTHER, SELFPAY ==
[2025-01-08 12:43] LABS: Hematocrit 47.0 % (41-53); Hemoglobin 15.7 g/dL (13.5-17.5); Mean Corpuscular HGB Conc 33.4 % (30-36); Mean Corpuscular Hemoglobin 28.0 PG (26-34); Mean Corpuscular Volume 83.8 fL (80-100); Platelet Count 167 X10^3/uL (150-400)
[2025-01-08 12:58] LABS: Hemoglobin A1C% w Est Avg Glu 6.7 % (4.0-6.0)
[2025-01-08 13:02] LABS: Alanine Aminotransferase 23 IU/L (<50); Albumin 4.2 g/dL (3.5-5.0); Albumin Globulin Ratio 1.5 (1.0-2.8); Alkaline Phosphatase 73 U/L (38-126); Blood Urea Nitrogen 17 mg/dL (9-20); Calcium 9.3 mg/dL (8.4-10.2); Carbon Dioxide 26 mmol/L (22-32); Chloride 106 mmol/L (98-107); Estimated Glomerular Filt Rate > 60 mL/min (>60); Globulin 2.8 g/dL (1.7-4.1); Glucose 81 mg/dL (70-99); HEMOLYSIS < 15 (0-50); Potassium 4.5 mmol/L (3.4-5.1); Sodium 142 mmol/L (137-145); Total Protein 7.0 g/dL (6.3-8.2)
[2025-01-08 13:33] LABS: Prostate Specific Antigen 10.5 ng/mL (0.10-4.00); TSH w/ Reflex to FT4 4.66 uIU/mL (0.47-4.68)
== END ==
PROVIDERS: Urology; PCP Internal Medicine; Referring Provider Internal Medicine; Visit Provider Internal Medicine
DX: I10 Essential (primary) hypertension (principal); R97.20 Elevated prostate specific antigen [PSA]; E11.59 Type 2 diabetes mellitus with other circulatory complications
CPT/HCPCS: 36415; 80053; 83036; 84153; 84443; 85027

== ENCOUNTER 2025-01-09 15:47 | Emergency (ER) | payer MEDICARE, OTHER, SELFPAY ==
[2025-01-09 16:14] VITALS: BP 110/53; PULSE 53; RESP 18; TEMP 36.4; O2SAT 100; BMI 25.1
--- NOTE | 2025-01-09 16:25 | DI.CT.S_ITS ---
PROCEDURE: CT CHEST ABD PEL WO CON INDICATIONS: Fall backwards onto LEFT FLANK; pain; ribs? TECHNIQUE: After the administration of oral contrast, 5 mm thick sections acquired from the lung apices to the symphysis pubis. 5 mm thick coronal and sagittal reformats acquired, with additional 7 mm coronal MIP reformats through the lungs. For radiation dose reduction, the following was used: automated exposure control, adjustment of mA and/or kV according to patient size. COMPARISON: [facility], CT, CT CHEST WO CON, 03/01/2023, 12:08. [facility], CT, CT CHEST WO CON, 02/26/2024, 13:46. FINDINGS: Image quality: Diagnostic. Evaluation of the solid parenchymal organs is limited without IV contrast. CHEST: Lower Neck: No enlarged lymph nodes. Thyroid: No thyroid nodules which require sonographic follow up, per consensus guidelines. Axillae: No enlarged lymph nodes. Chest Wall: Left pacemaker with right atrial and right ventricular leads. Asymmetric presumed right gynecomastia, (2/54), unchanged. Bones: -Left posterior lateral 11th and 12th rib fractures. Minimal displacement of the 11th rib fracture. -Undulation of the right 11th rib. Suspect chronic fracture. -Left L1-L3 transverse process fractures. Lungs and Pleura: No pneumothorax or pleural effusions. Similar mild right fat density pleural thickening. Pleural apical scarring. Mild paraseptal emphysema. Right lower lobe pulmonary nodule measuring 0.4 cm, (5/139), unchanged. Minimal bronchiectasis. The central airways are clear. Heart: Heart size is normal. Coronary artery calcifications. Possible coronary stent. No pericardial effusion. Thoracic Vessels: The aorta and pulmonary arteries demonstrate normal size. Aortic arch atherosclerotic calcifications. Mediastinum and [place]: No enlarged lymph nodes. Esophagus: No wall thickening. Small hiatal hernia. ABDOMEN: Liver: No contour abnormality. Gallbladder: Not distended. Gallstones x2 measuring 0.5 cm, unchanged. Biliary ducts: No dilatation is appreciated. Small calcification near the head of the pancreas, (2/114), unchanged. Pancreas: Small calcification near the body of the pancreas, unchanged. No peripancreatic fluid collection. Spleen: Size is within normal limits. Calcified granuloma. Adrenal Glands: No adrenal nodules. Kidneys and Ureters: No hydronephrosis. No definite kidney stones. Small left peripelvic cysts. No obvious contour abnormality. Stomach and Bowel: The stomach is not significantly distended. Small hiatal hernia. Small duodenal diverticulum. No small bowel obstruction. Diverticulosis. No diverticulitis. Prominent stool in the colon. Normal appendix. Peritoneum: No abnormal intraperitoneal fluid. No free air. Ventral Wall: Small fat containing umbilical hernia. Thickening at the mid abdominal wall bilaterally. Abdominal Nodes: No retroperitoneal or mesenteric adenopathy by size criteria. Vessels: Aorta and inferior vena cava are normal in size. Atherosclerotic calcifications. PELVIS: Pelvic Organs: Marked prostatomegaly. Probable median lobe hypertrophy. Bladder: Possible right bladder diverticulum or area of thickening, (2/196). Pelvic Nodes: No enlarged lymph nodes. Miscellaneous: Small fat containing left inguinal hernia. Bones: No aggressive osseous abnormality identified. Bones appear somewhat heterogeneous. Ankylosis of the anterior SI joints. Moderate bilateral hip DJD. IMPRESSION: 1. Left 11th and 12th rib fractures. Left L1-L3 transverse process fractures. 2. Subcutaneous thickening at the mid abdominal wall bilaterally. This could be due to contusion or possibly cellulitis or injection granulomas. 3. Small gallstones. 4. Marked prostatomegaly. Possible right bladder diverticulum or area of thickening. -Consider CT IVP or cystoscopy for further evaluation. Dictated by: Phillip Dyer M.D. on 01/09/2025 at 17:27 Approved by: Phillip Dyer M.D. on 01/09/2025 at 17:53
--- NOTE | 2025-01-09 16:52 | ED_ITS ---
<Statement entered by Macario Patel, DO - 01/09/25 21:53> Dr. Patel: I was immediately available in the department for consultation. I did not actually see the patient. HPI - Fall General Chief Complaint: Fall Stated Complaint: Fell down one step landed on back Time Seen by Provider: 01/09/25 16:20 Source: patient Mode of arrival: Ambulatory History of Present Illness HPI Narrative: Msr. Carter is a pleasant 79-year-old male with a past medical history of insulin-dependent diabetes, CAD, CHF, ICD and pacemaker, HTN, HLD, BPH who presents to the emergency department for left-sided back pain after a trip and fall that occurred earlier today. Patient reports that he was walking down to metal stairs in his outdoor shed, it was raining, the stairs were slippery, as he was going down he slipped and fell backwards landing directly onto his left flank region. He did not hit his head. He has had persistent left-sided back/flank pain since this fall. He has had an episode of normal urination. He denies head strike, headache, loss of consciousness, neck pain, chest pain, abdominal pain, upper extremity pain, lower extremity pain. He does not take blood thinners. He has not taken any medications prior to arrival. He is ambulatory. He is here with his . Related Data Home Medications ?Medication ?Instructions ?Recorded ?Confirmed aspirin 81 mg tablet,delayed 81 mg PO .every other day PRN 03/27/23 01/08/25 release sacubitril 49 mg-valsartan 51 mg 1 tab PO BID 01/08/25 01/08/25 tablet (Entresto) Previous Rx's ?Medication ?Instructions ?Recorded blood-glucose sensor (FreeStyle #6 ea 02/28/24 Lelo 3 Sensor device) tamsulosin 0.4 mg capsule 0.8 mg (2 x 0.4 mg) PO DAILY #180 03/18/24 caps carvedilol 12.5 mg tablet 12.5 mg PO BID #180 tabs empagliflozin 10 mg tablet 10 mg PO DAILY #90 tabs (Jardiance) insulin glargine 100 unit/mL 20 unit (0.2 mL) SUBCUT D AILY #30 07/08/24 subcutaneous solution (Lantus mL U-100 Insulin) insulin lispro 100 unit/mL 14 unit (0.14 mL) SUBCUT TI DWMEAL 07/08/24 subcutaneous solution (Humalog #30 mL U-100 Insulin) insulin syringe-needle U-100 0.3 #300 ea 07/08/24 mL 31 gauge x 07/11 rosuvastatin 20 mg tablet 20 mg PO DAILY #90 tabs 06/26 05/20 oxycodone 5 mg tablet 2.5 mg (02/27 x 5 mg) PO Q6H P RN 01/09/25 pain #12 tabs Allergies Allergy/AdvReac Type Severity Reaction Status Date / Time hydrocodone AdvReac Intermediate Hallucinati Verified 01/08/25 11:14 ng Review of Systems Review of Systems ROS Unobtainable: All systems reviewed & are unremarkable except as noted in HPI and below Patient History Medical History Do not resuscitate Abnormal chest CT Elevated PSA Chicken pox (~1949) Herpes (~1984) Skin cancer (~2017) Sensorineural hearing loss, bilateral (~2015) Primary osteoarthritis of left knee Mixed hyperlipidemia Essential hypertension Insulin use (long-term) in type 2 diabetes Type 2 diabetes mellitus with cardiac complication (~2009) Systolic CHF, chronic Coronary artery disease Surgical History Anesthesia History of heart artery stent Presence of combination internal cardiac defibrillator (ICD) and pacemaker (~2009) Family History Father Parkinson's disease Mother Diabetes mellitus History of heart disease Brother Stroke Grandfather Stroke Grandmother Cancer Social History details: , retired canoe trip, 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 Well-developed patient, in no acute distress. HEAD: Atraumatic. Normocephalic. EYES: Pupils equal round reactive to light. No scleral icterus. No injection or drainage. NECK: Trachea midline. Cervical ROM intact. No midline cervical tenderness. CARDIOVASCULAR: Regular rate and rhythm. RESPIRATORY: ?Nonlabored respirations. ?Speaking in clear, full sentences. ?Clear to auscultation. Breath sounds equal bilaterally. No wheezes, rales, or rhonchi. ? GASTROINTESTINAL: Abdomen soft, non-tender, nondistended. No ecchymosis. Patient does have tenderness to palpation of left flank region overlying the inferior ribs. There is no flail chest, no bruising, no crepitus. EXTREMITIES: No tenderness to palpation of bilateral shoulders, elbows, wrists, hips, knees, ankles. BACK: Left-sided flank tenderness overlying the thoracic/ribcage region. No skin changes. No midline spinal tenderness. NEURO: AOx3. ?Clear speech. ?Moves all 4 extremities appropriately. Ambulates independently. SKIN: No rash or erythema of visible areas. Initial Vital Signs Initial Vital Signs: Vital Signs Temperature 97.6 F 01/09/25 16:14 Pulse Rate 53 L 01/09/25 16:14 Respiratory Rate 18 01/09/25 16:14 Blood Pressure 110/53 L 01/09/25 16:14 Pulse Oximetry 100 01/09/25 16:14 Oxygen Delivery Method Room Air 01/09/25 16:14 Course Orders Ordered: ED Orders 01/09/25 16:25 CT chest abd pel wo con Stat 01/09/25 19:14 Consult to [facility] Stat Discontinued Medications Acetaminophen (Acetaminophen 325 Mg Tablet) 975 mg PO NOW ONE Stop: 01/09/25 16:26 Last Admin: 01/09/25 17:11 Dose: 975 mg Documented By: LIZETTE Oxycodone HCl (Oxycodone Ir 5 Mg Tablet) 2.5 mg PO NOW ONE Stop: 01/09/25 16:26 Last Admin: 01/09/25 17:12 Dose: 2.5 mg Documented By: LIZETTE Oxycodone/Acetaminophen (Oxycodone/Apap 5/325 Prepack) 1 bottle MISC DIRECTED ONE Stop: 01/09/25 19:32 Last Admin: 01/09/25 19:46 Dose: 1 bottle Vital Signs Vital signs: Vital Signs - 8 hr 01/09/25 16:14 01/09/25 19:53 Temperature 97.6 F 98 F Pulse Rate 53 L 61 Respiratory Rate 18 16 Blood Pressure 110/53 L 130/81 Pulse Oximetry 100 98 Oxygen Delivery Method Room Air Room Air MDM - Fall Medical Records Attestation: I reviewed the patient's medical records. Lab Data Labs: Urine Dip Bedside Urine Glucose 1000 mg/dl Bedside Urine Bilirubin - Negative Bedside Urine Ketone - Negative Urine Specific [place] 1.020 Bedside Urine Occult Blood + Bedside Urine pH 6.0 Bedside Urine Protein + 30 Bedside Urine Urobilinogen - Negative Bedside Urine Nitrite - Negative Bedside Urine Leukocytes - Negative Esterase Imaging Data CT Chest/Abd/Pelvis: Radiologist's Impression: PROCEDURE: CT CHEST ABD PEL WO CON INDICATIONS: Fall backwards onto LEFT FLANK; pain; ribs? TECHNIQUE: After the administration of oral contrast, 5 mm thick sections acquired from the lung apices to the symphysis pubis. 5 mm thick coronal and sagittal reformats acquired, with additional 7 mm coronal MIP reformats through the lungs. For radiation dose reduction, the following was used: automated exposure control, adjustment of mA and/or kV according to patient size. COMPARISON: [facility], CT, CT CHEST WO CON, 03/01/2023, 12:08. [facility], CT, CT CHEST WO CON, 02/26/2024, 13:46. FINDINGS: Image quality: Diagnostic. Evaluation of the solid parenchymal organs is limited without IV contrast. CHEST: Lower Neck: No enlarged lymph nodes. Thyroid: No thyroid nodules which require sonographic follow up, per consensus guidelines. Axillae: No enlarged lymph nodes. Chest Wall: Left pacemaker with right atrial and right ventricular leads. Asymmetric presumed right gynecomastia, (2/54), unchanged. Bones: -Left posterior lateral 11th and 12th rib fractures. Minimal displacement of the 11th rib fracture. -Undulation of the right 11th rib. Suspect chronic fracture. -Left L1-L3 transverse process fractures. Lungs and Pleura: No pneumothorax or pleural effusions. Similar mild right fat density pleural thickening. Pleural apical scarring. Mild paraseptal emphysema. Right lower lobe pulmonary nodule measuring 0.4 cm, (5/139), unchanged. Minimal bronchiectasis. The central airways are clear. Heart: Heart size is normal. Coronary artery calcifications. Possible coronary stent. No pericardial effusion. Thoracic Vessels: The aorta and pulmonary arteries demonstrate normal size. Aortic arch atherosclerotic calcifications. Mediastinum and Sydnee: No enlarged lymph nodes. Esophagus: No wall thickening. Small hiatal hernia. ABDOMEN: Liver: No contour abnormality. Gallbladder: Not distended. Gallstones x2 measuring 0.5 cm, unchanged. Biliary ducts: No dilatation is appreciated. Small calcification near the head of the pancreas, (2/114), unchanged. Pancreas: Small calcification near the body of the pancreas, unchanged. No peripancreatic fluid collection. Spleen: Size is within normal limits. Calcified granuloma. Adrenal Glands: No adrenal nodules. Kidneys and Ureters: No hydronephrosis. No definite kidney stones. Small left peripelvic cysts. No obvious contour abnormality. Stomach and Bowel: The stomach is not significantly distended. Small hiatal hernia. Small duodenal diverticulum. No small bowel obstruction. Diverticulosis. No diverticulitis. Prominent stool in the colon. Normal appendix. Peritoneum: No abnormal intraperitoneal fluid. No free air. Ventral Wall: Small fat containing umbilical hernia. Thickening at the mid abdominal wall bilaterally. Abdominal Nodes: No retroperitoneal or mesenteric adenopathy by size criteria. Vessels: Aorta and inferior vena cava are normal in size. Atherosclerotic calcifications. PELVIS: Pelvic Organs: Marked prostatomegaly. Probable median lobe hypertrophy. Bladder: Possible right bladder diverticulum or area of thickening, (2/196). Pelvic Nodes: No enlarged lymph nodes. Miscellaneous: Small fat containing left inguinal hernia. Bones: No aggressive osseous abnormality identified. Bones appear somewhat heterogeneous. Ankylosis of the anterior SI joints. Moderate bilateral hip DJD. IMPRESSION: 1. Left 11th and 12th rib fractures. Left L1-L3 transverse process fractures. 2. Subcutaneous thickening at the mid abdominal wall bilaterally. This could be due to contusion or possibly cellulitis or injection granulomas. 3. Small gallstones. 4. Marked prostatomegaly. Possible right bladder diverticulum or area of thickening. -Consider CT IVP or cystoscopy for further evaluation. Dictated by: Phillip Dyer M.D. on 01/09/2025 at 17:27 Approved by: Phillip Dyer M.D. on 01/09/2025 at 17:53 MDM Narrative Medical decision making narrative: 79-year-old male with a past medical history of insulin-dependent diabetes, CAD, CHF, ICD and pacemaker, HTN, HLD, BPH who presents to the emergency department for left-sided back pain after a trip and fall that occurred earlier today. Differential diagnosis includes but is not limited to rib fracture, compression fracture, contusion, intra-abdominal injury, etc. On exam the patient is in no acute distress, nontoxic appearing, vital signs appropriate. He has reproducible tenderness to palpation of the left posterior inferior ribcage region/left thoracic region. Abdomen is soft and nontender, no chest pain abdominal pain shortness of breath. We will obtain CT chest abdomen pelvis without contrast to evaluate for potential bony abnormality, we will check urinalysis, we will treat pain with half oxycodone as patient does report feeling hallucinations with hydrocodone in the past, he therefore would like to try lower dose. Imaging reveals left 11th and 12th rib fractures and left L1, L2, L3 transverse process fractures. No pneumothorax or pleural effusions. Will consult with ortho given the number of fractures. 1914: Discussed fractures with Orthopedics on-call, Dr. Byrd. They recommended Tylenol, Motrin, opioids if needed, they will follow up in clinic with him and provide with brace if needed as we do not have them here in the ER. Printed discussed imaging findings with the patient his including acute and incidental findings. Patient is feeling much better after 2.5 mg oxycodone and acetaminophen in the ED. He is comfortable taking deep breaths. RT met with the patient and taught him and use incentive spirometry and he did incredibly well. He is comfortably ambulating. He is eager for discharge. Discussed narcotic risks with the patient his , we will prescribe short course of oxycodone also recommended Tylenol, ice, heat, supportive care. Advised prompt follow up with Orthopedics for further management, possible brace. Reviewed signs and symptoms to return to the emergency department for which patient his verbalized understanding of. He is ambulatory and stable for discharge home with his . Discharge Plan Departure Patient Disposition: Home Clinical Impression: Fracture of left twelfth rib, Fracture of left eleventh rib, Fall (on) (from) other stairs and steps, initial encounter Fracture of transverse process of lumbar vertebra Qualifiers: Encounter type: initial encounter Fracture type: closed Qualified Code(s): S32.009A - Unspecified fracture of unspecified lumbar vertebra, initial encounter for closed fracture Instructions: DI for Rib Fracture, DI for Transverse Process Fracture Activity Restrictions/Additional Instructions: Dear Mr. Michaelsen, Thank you for coming to the emergency department. Today you were evaluated for left-sided back/flank pain after a fall. Your imaging today revealed you broke your 11th and 12th ribs on the left side and you also broke your left L1, L2, L3 transverse processes of your vertebrae. It is very important to rest, avoid bending and heavy lifting and twisting. Please call and schedule an appointment with [facility] or further management. Use the incentive spirometer that you were provided with to help encouraging deep breathing. Please rest, ice, use Tylenol for mild pain and prescribed oxycodone for severe pain. These medications can safely be taken together. Return to the emergency department immediately if you develop fevers, severe pain, inability to walk, abdominal pain or bruising, urinating blood difficulty breathing or any other concerns. You have been prescribed a short course of narcotic medications. These are potentially dangerous and addictive medications that should be used carefully. While on these medications you cannot drive or operate heavy machinery. Additionally, you cannot sign legal documents or perform any duties such as this. Many people get constipated on narcotic medications so it would be advisable to discuss stool softeners with the pharmacist when you supervisor opening and picking your prescription. Please understand that we cannot provide further refills of narcotics or controlled substances through the ED and your pain management will need to be through your Primary Care Provider Please follow up with your primary care doctor within the next 2-3 days for ER follow-up. (If you do not have a PCP you can call [phone]. ?to schedule an appointment with an [facility] Primary Care Provider) IF YOU DEVELOP ANY NEW OR WORSENING SYMPTOMS, RETURN TO THE ER! Please read the attached instructions, they highlight more specific treatments and interventions for you at home. Thank you for letting me participate in your care, Goldie Lowry PA-C Prescriptions: New oxycodone 5 mg tablet 2.5 mg PO Q6H PRN (Reason: pain) Qty: 12 0RF No Action (DME) FreeStyle Lelo 3 Sensor Device See Rx Instructions .ROUTE .MEDSUPPLY Qty: 6 3RF Rx Instructions: USE TO TEST BLOOD GLUCOSE LEVELS CONTINUOUSLY. REPLACE EVERY 14 DAYS OR IF SENSOR FALLS OFF. aspirin 81 mg tablet,delayed release (DR/EC) 81 mg PO .every other day PRN Jardiance 10 mg tablet 10 mg PO DAILY Qty: 90 3RF insulin glargine [Lantus U-100 Insulin] 100 unit/mL solution 20 unit SUBCUT DAILY Qty: 30 3RF insulin lispro [Humalog U-100 Insulin] 100 unit/mL solution 14 unit SUBCUT TIDWMEAL Qty: 30 3RF (DME) insulin syringe-needle U-100 0.3 mL 31 gauge x 5/16 syringe See Rx Instructions .ROUTE .MEDSUPPLY Qty: 300 3RF Rx Instructions: As directed rosuvastatin 20 mg tablet 20 mg PO DAILY Qty: 90 3RF carvedilol 12.5 mg tablet 12.5 mg PO BID Qty: 180 3RF Rx Instructions: must administer with a meal/food sacubitril-valsartan [Entresto] 49-51 mg tablet 1 tab PO BID tamsulosin 0.4 mg capsule 0.8 mg PO DAILY Qty: 180 3RF Referrals: Randy Luevano MD [Primary Care Provider, Internal Medicine] Nelli Byrd DO [Physician, Orthopedic Surgery] Referral Note: Left L1,L2,L3 transverse process fractures Stand Alone Forms: Patient Portal/API
[2025-01-09] MEDS: ACETAMINOPHEN 325 MG TABLET 975 MG PO (17:11)
[2025-01-09 19:53] VITALS: BP 130/81; PULSE 61; RESP 16; TEMP 36.6; O2SAT 98
--- NOTE | 2025-01-09 19:54 | PC.NURSE ---
Seen and assessed by provider in fast track. please see provider documentation.
== END 2025-01-09 19:57 | disposition home or self-care (01) ==
PROVIDERS: Emergency Provider Physician Assistant; PCP Internal Medicine
DX: S22.42XA Multiple fractures of ribs, left side, initial encounter for closed fracture (principal); S32.019A Unspecified fracture of first lumbar vertebra, initial encounter for closed fracture; S32.029A Unspecified fracture of second lumbar vertebra, initial encounter for closed fracture; S32.039A Unspecified fracture of third lumbar vertebra, initial encounter for closed fracture; W01.198A Fall on same level from slipping, tripping and stumbling with subsequent striking against other object, initial encounter; E11.9 Type 2 diabetes mellitus without complications; Z79.4 Long term (current) use of insulin; I50.9 Heart failure, unspecified; Z95.0 Presence of cardiac pacemaker; I10 Essential (primary) hypertension
CPT/HCPCS: 71250; 74176; 81003; 99283; 99284

== ENCOUNTER → 2025-01-21 13:13 | Outpatient (CLI) | payer MEDICARE, OTHER, SELFPAY ==
[2025-01-21 14:50] LABS: Blood Urea Nitrogen 30 mg/dL (9-20); Calcium 9.9 mg/dL (8.4-10.2); Carbon Dioxide 28 mmol/L (22-32); Chloride 101 mmol/L (98-107); Estimated Glomerular Filt Rate > 60 mL/min (>60); Glucose 127 mg/dL (70-99); HEMOLYSIS < 15 (0-50); Potassium 4.8 mmol/L (3.4-5.1); Sodium 140 mmol/L (137-145)
== END ==
PROVIDERS: PCP Internal Medicine; Referring Provider Internal Medicine Cardiovascular Disease; Visit Provider Internal Medicine Cardiovascular Disease
DX: I25.10 Atherosclerotic heart disease of native coronary artery without angina pectoris (principal); I50.20 Unspecified systolic (congestive) heart failure
CPT/HCPCS: 36415; 80048